=== PATIENT | female | born 1985 | race Caucasian/White ===

== ENCOUNTER 2017-04-16 08:52 | Outpatient (CLI) | payer MEDICAID ==
[~2017-04-16] VITALS: Ht 175.3 cm; Wt 63.5 kg
[~2017-04-16 08:52] MED LIST: ACHD5005 PO; AZIT-21 PO; Amlodipine Besylate PO; CETI5TAB6 PO; DCS100C PO; FERR325C PO; FRS325T PO; HYDR-3714 PO; IBP600T1 PO; LABE200T3 PO; NITR-65 PO; ONDA4TAB8 PO; POTA20TA15 PO; PREN1TAB71 PO; TRAM50TA2 PO
[2017-04-16] MEDS ORDERED: ADAL40KI SQ (09:04)
[2017-04-16 09:07] VITALS: BP 108/71
[2017-04-16 09:36] LABS: BASOPHILS # (AUTO) 0.1 10^3/uL (0.0-0.1); BASOPHILS % (AUTO) 1 % (0-10); EOSINOPHILS # (AUTO) 0.3 10^3/uL (0.0-0.3); EOSINOPHILS % (AUTO) 5 % (0-10); LYMPHOCYTES # (AUTO) 2.6 X 10^3 (1.0-4.0); LYMPHOCYTES % (AUTO) 39 % (12-44); MEAN CORPUSCULAR HEMOGLOBIN 30 PG (25-34); MEAN CORPUSCULAR HGB CONC 34 G/DL (32-36); MEAN CORPUSCULAR VOLUME 88 FL (80-99); MEAN PLATELET VOLUME 11.4 FL (7.4-10.4); MONOCYTES # (AUTO) 0.6 X 10^3 (0.0-1.0); MONOCYTES % (AUTO) 9 % (0-12); NEUTROPHILS # (AUTO) 3.1 X 10^3 (1.8-7.8); NEUTROPHILS % (AUTO) 47 % (42-75); PLATELET COUNT 244 10^3/uL (130-400); RED BLOOD COUNT 4.64 10^6/uL (4.35-5.85); RED CELL DISTRIBUTION WIDTH 12.5 % (10.0-14.5); WHITE BLOOD COUNT 6.7 10^3/uL (4.3-11.0)
== END 2017-04-16 15:32 | disposition home or self-care (01) ==
LOC: PREOP 08:52
PROVIDERS: ATTEND Obstetrics & Gynecology
DX: Z01.818 Encounter for other preprocedural examination (principal); N87.9 Dysplasia of cervix uteri, unspecified
CPT/HCPCS: 36415; 85025; 86850; 86900; 86901; 87081

== ENCOUNTER 2017-04-23 06:04 | Day surgery (SDC) | payer MEDICAID ==
[~2017-04-23] VITALS: Ht 175.3 cm; Wt 63.5 kg
[~2017-04-23 06:04] MED LIST changes: +ADAL40KI SQ
--- OUTSIDE RECORDS SUMMARY | 2017-04-23 06:07 | XMS REPORT | Encounter Summary ---
Author Author [facility] Organization [facility] Address Unknown Phone Unavailable Care Team Providers Care Children'S Minister Name Role Phone PCP Unavailable Reason for Visit * Reason Comments Prior Authorization Humira Encounter Details Date Type Department Care Team Description 04/06/2017 Telephone [facility] María Valencia DO Prior Authorization Physicians - Internal [address] [place] ([facility] [place] [address] [place] [address] OFFICE BLDG [phone] [address] [place] [address] Social History Tobacco Use Types Packs/Day Years Used Date Current Every Day Smoker Sex Assigned at Date Recorded Not on file as of this encounter Plan of Treatment Not on fileas of this encounter Visit Diagnoses Not on filein this encounter
--- OUTSIDE RECORDS SUMMARY | 2017-04-23 06:07 | XMS REPORT | Continuity of Care Document ---
Author Author [facility] Organization [facility] Address Unknown Phone Unavailable Care Team Providers Care Production Operations Inspector Name Role Phone [employer] Unavailable Unavailable Problems Medications Allergies, Adverse Reactions, Alerts Immunizations Results Vital Signs Encounters Location Location Details Encounter Type Encounter Number Reason For Visit Attending Provider ADM Date DC Date Status Source OUTPATIENT [id number] TAYA RODGERS 12/04/20162016 Active [facility] Naman DOWNEY 05/13/2017 Active [facility] Procedures Plan of Care Social History Assessment and Plan Family History Value Date Source Advance Directives Order Name Results Value Date Source
--- OUTSIDE RECORDS SUMMARY | 2017-04-23 06:07 | XMS REPORT | Encounter Summary ---
Author Author [facility] Organization [facility] Address Unknown Phone Unavailable Care Team Providers Care Motel Manager Name Role Phone PCP Unavailable Reason for Visit * Reason Comments Medication Management Encounter Details Date Type Department Care Team Description 01/23/2017 Pharmacist [facility] Roselia Dennis PHARMD Visit [address] [facility] [place] [address] Social History Tobacco Use Types Packs/Day Years Used Date Current Every Day Smoker Sex Assigned at Date Recorded Not on file as of this encounter Progress Notes * Roselia Dennis PHARMD - 01/23/2017 1:45 PM CDT Formatting of this note may be different from the original. Patient Reassessment: Tumor Necrosis Factor (TNF) Alpha Antagonists Humira (adalimumab) Appropriateness of Therapy Humira (adalimumab) is being continued for the appropriate indication of psoriatic arthritis. The regimen of 40 mg subcutaneously every 7 days is planned to continue indefinitely which is appropriate for Romy Yates. No renal or hepatic adjustments are required. At this time the there is no planned dose titration. Patient assessments: Subjective clinical assessment: on a scale of 1 to 10, the patient rates they are feeling 10 out of 10 while on treatment. Subjective Quality of Life Measurement: In the past 30 days, Romy Yates was able to complete all normal daily activities. Level of disease activity / changes while on therapy. Previously trialed agents:naproxen Allergy and/or intolerance medications: none Current agents:adalimumab, nabumetone, and diclofenac gel Additional considerations: none As the patient is achieving therapeutic benefit from the therapy the plan is to continue. Adverse Effects Romy Yates is not experiencing any significant adverse effects to this medication regimen. Adherence Refill history was reviewed with the patient. Romy Yates states they are adherent with refills and reports missing 0 doses over the past 4 weeks. The patient was reminded about the refill process and re-educated on the importance of adherence. Romy Yates is meeting their goal of adherence with their regimen. Medication Reconciliation A medication history and reconciliation were performed (including prescription medications, supplements, over the counter, and herbal products). The medication list was updated and the patients current medication list is included below. Home Medications Medication Sig adalimumab(+) (HUMIRA PEN) 40 mg/0.8 mL injection pen Inject 40 mg under the skin every 7 days. cyclobenzaprine (FLEXERIL) 10 mg tablet Take 1 Tab by mouth at bedtime as needed for Muscle Cramps. diclofenac(+) (VOLTAREN) 1 % topical gel Apply 2 grams four times a day to each thumb/wrist nabumetone (RELAFEN) 500 mg tablet TAKE 1 TABLET BY MOUTH 2 TIMES A DAY pantoprazole DR (PROTONIX) 40 mg tablet Take 1 Tab by mouth daily. Drug-drug and drug-food interactions between the patients specialty medication and their medication list were assessed and reviewed with the patient. Their regimen can be taken with or without food. No new significant drug-drug or drug-food interactions were identified. The patient was instructed to speak with their health care provider before starting any new drug, including prescription or over the counter, natural / herbal products, or vitamins. Allergies Allergies Allergen Reactions Codeine VOMITING Pcn [Penicillins] VOMITING status potential was reviewed with the patient. As the female is of child- bearing potential, she was instructed that is she plans to become and/ or in the event that she becomes she should contact her physician immediately. Ms. Yates currently has a copper IUD in place. Risk Evaluation and Mitigation Strategy (REMS) Assessment No REMS is required for this medication. The patient was encouraged to call with questions. Followup Plan Re-assessment has been completed. The patient will be reassessed in one year. Roselia Dennis PHARMD in this encounter Plan of Treatment Not on fileas of this encounter Visit Diagnoses Not on filein this encounter
--- OUTSIDE RECORDS SUMMARY | 2017-04-23 06:07 | XMS REPORT | Encounter Summary ---
Author Author [facility] Organization [facility] Address Unknown Phone Unavailable Care Team Providers Care Rail Walker Name Role Phone PCP Unavailable Reason for Visit * Reason Comments Medication Refill Encounter Details Date Type Department Care Team Description 03/09/2017 Refill [facility] Roselia De Souza MD Physicians - Internal [address] [facility] Medicine [place] [address] [place] [address] OFFICE BLDG [phone] [address] [place] [address] Social History Tobacco Use Types Packs/Day Years Used Date Current Every Day Smoker Sex Assigned at Date Recorded Not on file as of this encounter Plan of Treatment Not on fileas of this encounter Visit Diagnoses Not on filein this encounter
--- OUTSIDE RECORDS SUMMARY | 2017-04-23 06:07 | XMS REPORT | Clinical Summary ---
Author Author [facility] Organization [facility] Address Unknown Phone Unavailable Care Team Providers Care Throat Cutter Name Role Phone PCP Unavailable Source Comments Some departments are not documenting in the electronic medical record. If you do not see the information that you expected, contact Release of Information in the Health Information Management department at [phone] for further assistance in locating additional records.[facility] Allergies Active Allergy Reactions Severity Noted Date Comments Codeine VOMITING Low 07/20/2015 Penicillins VOMITING Low 07/20/2015 Current Medications Prescription Sig. Disp. Refills Start End Date Status Date cyclobenzaprine Take 1 Tab by mouth at 60 Tab 1 08/05/20 Active (FLEXERIL) 10 mg tablet bedtime as needed for [address] Take 1 Tab by mouth 90 Tab 3 12/05/19 Active (PROTONIX) 40 mg tablet daily. 17 nabumetone (RELAFEN) 500 TAKE 1 TABLET BY MOUTH 2 60 Tab 3 12/10/19 Active mg tablet TIMES A DAY 17 diclofenac(+) (VOLTAREN) Apply 2 grams four times 3 Tube 0 12/05/19 Active 1 % topical gel a day to each thumb/wrist 17 HUMIRA PEN INJECT 40 MG UNDER THE 12 Each 3 03/18/20 Active PSORIASIS-UVEITIS 40 SKIN EVERY 7 DAYS 17 mg/0.8 mL injection pen Active Problems Problem Noted Date Psoriasis 04/24/2016 Polyarthralgia 04/24/2016 Encounters Date Type Specialty Care Team Description 04/06/2017 Telephone Allergy,Immunology and María Valencia DO Prior Authorization Rheumatology (Humira) 03/09/2017 Refill Allergy,Immunology and Roselia De Souza MD Rheumatology 01/23/2017 Pharmacist Roselia Dennis, ENZOD Visit from Last 3 Months Immunizations Name Dates Previously Given Next Due Flu Vaccine 08/05/2016 Quadrivalent=>3 Yo (Preservative Free) Pneumococcal 04/24/2016 Vaccine(13-[facility]/immunocompromised adult) Family History Relation Name Status Comments Social History Tobacco Use Types Packs/Day Years Used Date Current Every Day Smoker Sex Assigned at Date Recorded Not on file Last Filed Vital Signs Vital Sign Reading Time Taken Blood Pressure 117/70 12/04/2016 10:48 AM CDT Pulse 85 12/04/2016 10:48 AM CDT Temperature 37 C (98.6 F) 12/04/2016 10:48 AM CDT Respiratory Rate 16 12/04/2016 10:48 AM CDT Oxygen Saturation - - Inhaled Oxygen - - Concentration Weight 64.6 kg (142 lb 6.4 oz) 12/04/2016 10:48 AM CDT Height 175.3 cm (5' 9.02") 12/04/2016 10:48 AM CDT Body Mass Index 21.02 12/04/2016 10:48 AM CDT Plan of Treatment Health Maintenance Due Date Last Done Comments PHYSICAL (COMPREHENSIVE) 02/10/1992 EXAM PERTUSSIS VACCINE 02/10/1996 TETANUS VACCINE 2002 CERVICAL CANCER SCREENING 2015 INFLUENZA VACCINE 04/17/2017 08/05/2016, 08/05/2016 Results Not on filefrom Last 3 Months
[2017-04-23] MEDS ORDERED: BUPIVACAINE 0.25% 30 ML (SENSORCAINE) VIAL ONE (06:29)
[2017-04-23] MEDS ORDERED: ROCURONIUM 50 MG/5 ML (ZEMURON) VIAL IV ONE ×2 (06:29→08:57)
[2017-04-23] MEDS ORDERED: ONDANSETRON 4 MG/2 ML (SDV) Z0FRAN ONE (06:29)
[2017-04-23] MEDS ORDERED: MIDAZOLAM 2 MG/2 ML (VERSED) VIAL ONE (06:29)
[2017-04-23] MEDS ORDERED: LIDOCAINE JELLY 2% (XYLOCAINE) 5 ML TUBE ONE (06:29)
[2017-04-23] MEDS ORDERED: LIDOCAINE PF 2% 5 ML (XYLOCAINE) VIAL ONE (06:29)
[2017-04-23] MEDS ORDERED: proPOfol 200 MG/20 ML (DIPRIVAN) VIAL IV ONE (06:29)
[2017-04-23] MEDS ORDERED: fentaNYL INJECTION 250 MCG/5 ML AMP ONE (06:29)
[2017-04-23 06:30] VITALS: BP 112/79
[2017-04-23] MEDS ORDERED: metroNIDAZOLE 500MG/100ML IVPB 100 ML ONE (06:30)
[2017-04-23] MEDS ORDERED: NS (IVPB) 50 ML ONE (06:30)
[2017-04-23] MEDS ORDERED: ceFAZolin 1,000 MG (ANCEF) VIAL ONE (06:30)
[2017-04-23] MEDS: LACTATED RINGERS 1,000 ML IV PRN ×3 (06:53→09:18)
--- NOTE | 2017-04-23 07:05 | Progress Note-Pre Operative ---
Pre-Operative Progress Note H&P Reviewed The H&P was reviewed, patient examined and no changes noted. Date Seen by Provider: Apr 23, 2017 Time Seen by Provider: 07:00 Date H&P Reviewed: Apr 23, 2017 Time H&P Reviewed: 07:00 Pre-Operative Diagnosis: Severe cervical dysplasia with + endocervical margins SULTANA RETANA DO Apr 23, 2017 7:05 am
[2017-04-23] MEDS ORDERED: ceFAZolin 1 GM/NS 50 ML IVPB IV ONE ×2 (07:15)
[2017-04-23] MEDS ORDERED: metroNIDAZOLE 500 MG/100 ML IVPB (PRE-MIX) IV ONE (07:15)
[2017-04-23] MEDS ORDERED: KETOROLAC 30 MG/ML VIAL ONE (08:53)
[2017-04-23] MEDS ORDERED: morphine INJ 10 MG/ML 1ML (SYR OR VIAL) ONE (08:53)
[2017-04-23] MEDS ORDERED: SEVOFLURANE (ULTANE) 15 ML INHAL SOLN ONE (08:57)
[2017-04-23] MEDS ORDERED: LACTATED RINGERS 1,000 ML IV ONE ×2 (08:57→09:10)
[2017-04-23] MEDS: MEPERIDINE (DEMEROL) INJ 50 MG/ML IVP PRN ×2 (09:18→09:22)
--- NOTE | 2017-04-23 09:19 | Discharge Inst-Women's Service ---
Discharge Inst-Women's Serv Depart Medication/Instructions New, Converted or Re-Newed RX: RX on Chart Consults/Follow Up Additional Follow Up: Yes Orders/Referrals Dr. Steele in 7-10 days and in 8 weeks Activity Activity: Activity as Tolerated Driving Instructions: No Driving for 1 Week NO SMOKING: NO SMOKING Nothing Inside Vagina: No Douching, No Benedict, No Tampons Diet Discharge Diet: No Restrictions Symptoms to Report to : Bleeding Excessive, Pain Increased, Fever Over 101 Degrees F, Vaginal Bleeding Increase, Questions/Concerns For Any Problems or Questions: Contact Your Physician Skin/Wound Care Infection Signs and Symptoms: Increased Redness, Foul Odor of Wound, Increased Drainage, Skin Itchy or Has a Rash, Increased Swelling, Temperature Above 101 F Operative Area Clean and Dry: Keep Incision Clean/Dry Stitches/Davida/Dermabond: Dermabond, Care of Stitches Bathing Instructions: SULTANA Alvarado DO Apr 23, 2017 9:19 am
[2017-04-23] MEDS ORDERED: HYDR-3816 PO (09:20)
[2017-04-23] MEDS ORDERED: DOCU100C37 PO (09:20)
[2017-04-23] MEDS ORDERED: IBUP-1773 PO (09:20)
[2017-04-23] MEDS ORDERED: SIME80TA16 PO (09:20)
[2017-04-23] MEDS: KETOROLAC 30 MG/ML VIAL IV PRN ×2 (09:28→15:41)
[2017-04-23] MEDS ORDERED: ONDANSETRON 4 MG/2 ML (SDV) Z0FRAN IVP PRN (09:30)
[2017-04-23] MEDS ORDERED: CHLORASEPTIC LOZENGE MM PRN (09:30)
[2017-04-23] MEDS ORDERED: ANTACID SUSP 30 ML UDC (MYLANTA) PO PRN (09:30)
[2017-04-23] MEDS ORDERED: DOCUSATE SODIUM 100 MG (COLACE) CAP PO PRN (09:30)
[2017-04-23] MEDS: morphine INJ 10 MG/ML 1ML (SYR OR VIAL) IVP PRN ×2 (09:30→09:46)
[2017-04-23] MEDS ORDERED: ONDANSETRON 4 MG/2 ML (SDV) Z0FRAN IV PRN (09:30)
[2017-04-23] MEDS ORDERED: ZOLPIDEM 5 MG (AMBIEN) TAB PO PRN (09:30)
[2017-04-23] MEDS ORDERED: SIMETHICONE 80 MG (MYLICON) CHEW PO PRN (09:30)
[2017-04-23] MEDS: LACTATED RINGERS 1,000 ML IV SCH ×2 (10:28→14:28)
[2017-04-23] MEDS: HYDROcodone/APAP 7.5 MG/325 MG (LORTAB, LORCET PLUS) TABLET PO PRN ×2 (11:34→17:55)
--- NOTE | 2017-04-23 11:58 | OPERATIVE REPORT ---
DATE OF SERVICE: PREOPERATIVE DIAGNOSIS: A 32-Year-old female with severe cervical dysplasia with positive endocervical margin on cone biopsy. POSTOPERATIVE DIAGNOSIS: A 32-Year-old female with severe cervical dysplasia with positive endocervical margin on cone biopsy. PROCEDURE PERFORMED: Robotic assisted total laparoscopic hysterectomy with bilateral salpingectomy. SURGEON: Dr. Arthur Retana. SHOVEL HANDLE ASSEMBLER: REMY Saldaña ANESTHESIA: General endotracheal. ESTIMATED BLOOD LOSS: 20 mL. URINE OUTPUT: 40 mL, clear at the end of the procedure. FLUIDS: 2000 mL Lactated Ringers solution. FINDINGS: Grossly normal appearing uterus with grossly normal appearing bilateral fallopian tubes and ovaries. SPECIMENS SENT: Uterus and fallopian tubes. INDICATION FOR PROCEDURE: This 32-year-old female is a patient that had been established in my office. We were following her for history of dysplasia. 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 Cone biopsy was taken in the office which revealed positive endocervical margins. I discussed with the patient proceeding with another cone biopsy versus proceeding with hysterectomy, risks of both were discussed, as well as need for possible repeat conizations, colposcopies and further workup down the line. After everything was discussed with the patient, she and her agreed that hysterectomy as a more definitive measure would be a better option for her. Risks again were reviewed with the patient in detail including risk of bleeding, infection, damage to any surrounding structures including but not limited to bowel, bladder, ureter, kidneys and subsequent procedures that may be involved if any of these things should occur. Risks from anesthesia, blood transfusion and even were all reviewed with the patient as well. After all of her questions were answered, consent was obtained in the preoperative area and the patient was taken to the operating room. DESCRIPTION OF PROCEDURE: Once in the operating room, general anesthesia was found to be adequate. She was placed in dorsal lithotomy position and prepped and draped in a normal sterile fashion. Ambriz catheter was placed using a sterile technique. A weighted speculum was inserted into the patient's vagina. Right angled retractor was used to visualize the cervix. An 0 Vicryl suture was placed on the anterior lip of the cervix and used as my retraction point on the cervix. I then proceeded with sounding the uterine cavity which was found to be 8 cm. I then selected 8 cm Nisa uterine manipulator tip and a 3.5 colpotomy ring and placed the manipulator into the uterus deploying the balloon and deploying the colpotomy ring around the vaginal fornix. Once this was in place, excellent manipulation is noted on bimanual examination. I then removed all of the other instruments from the patient's vagina, performed a change of clothes and took my attention to the abdomen where infraumbilically, I infiltrated this area using 0.25% Marcaine. I made an 8 mm incision and directed the Veress needle through this incision until intraperitoneal placement was confirmed using the saline drop test. I then proceeded with insufflation using CO2 gas to a maximum pressure of 15 mmHg after an opening pressure of 3 mmHg is noted. I then removed the Veress needle and introduced an 8 mm blunt da Serina camera trocar through this incision. Once again, intraperitoneal placement was able to be confirmed using the da Serina laparoscope. I then had the patient placed in steep Trendelenburg after I briefly scanned the abdominal anatomy and unable to see any evidence of damage upon my entry. Once the patient was in steep Trendelenburg, I am able to visualize all the anatomy necessary to proceed with the procedure. I placed 2 8 mm incisions approximately 8 cm lateral to my infraumbilical trocar. These are used for my separate robotic arms. Once these trocars are in place, I bring in the Easy Square Feeti robot and docked in the appropriate fashion. I placed monopolar taina in the right hand and the DaVinci vessel sealer in the left hand. I then took my place at the operative console after the BigTwistinci robot is docked and performed the following dissection bilaterally. I 1st grasped the uteroovarian ligament, bipolar cauterized and transected using the vessel sealer. I then created a window in the mesosalpinx using the monopolar taina and then took this distally amputating the fallopian tube from the mesosalpinx using the DaVinci vessel sealer. I then grasped the round ligament, bipolar cauterized this. I transected it using the vessel sealer. I then grasped the entire broad ligament, bipolar cauterized and transected using the vessel sealer down to the level of the lower uterine segment at which point I separate the anterior and posterior leaflets of the lower uterine segment. The anterior leaflet is taken around to the anterior vaginal fornix. The posterior leaflet dissection is taken around to the posterior vaginal fornix. This allows me to visualize and skeletonize the uterine vessels laterally. They are bipolar cauterized and transected using the vessel sealer. I then performed a colpotomy at 12 o'clock using monopolar taina and took this circumferentially amputating the vaginal fornix away from the cervix and uterus and fallopian tubes. The uterus was then removed through the vagina. I then proceeded with closing the lateral vaginal apices of the vaginal cuff using 2-0 Vicryl suture in a [id number] fashion. I colposuspend them to the uterosacral ligaments. I then closed the remainder of the vaginal cuff using 2-0 V-Loc in a running fashion after which there was no active bleeding noted from any of my dissection planes. I undocked the Easy Square Feeti robot and proceeded with the remainder of the case laparoscopically. I copiously irrigated the pelvis using normal saline. There was no active bleeding noted from any of my dissection planes. I then placed FloSeal hemostatic agent over all my planes of dissection and after the patient was taken out of steep Trendelenburg I removed the lateral trocars under direct visualization with the laparoscope. There was no active bleeding noted from these. The infraumbilical trocar was left in place and I introduced 10 mL of 0.25% Marcaine to the peritoneal cavity for postoperative pain management. I then released insufflation from this site as well and removed this trocar. The skin was then closed using 4-0 Monocryl in interrupted subcuticular stitches. Dermabond was applied to the incision and band-aids were placed over this. Ambriz catheter was left in place. All other instruments were removed from the patient. The patient tolerated the procedure well and was taken to the recovery area in stable condition. Lap and sponge counts were correct at the end of the procedure. Instrument count is correct as well. One gram of Ancef and 500 mg Flagyl were given preoperatively for infection prophylaxis. Job ID: [id number] DocumentID: [id number] Dictated Date: 04/23/2017 10:45:38 Rice Cleaning Machine Tender Date: 04/23/2017 11:57:26 Dictated By: ARTHUR RETANA DO
[2017-04-23 13:40] VITALS: BP_SYST 102; BP_SYST 99; BP_DIAS 49; BP_DIAS 57
[2017-04-24] MEDS ORDERED: IBUPROFEN 600 MG (MOTRIN) TAB PO PRN (02:00)
== END 2017-04-23 17:55 | disposition home or self-care (01) ==
LOC: SDC 06:04 → WS 10:00 → SDC 17:55
PROVIDERS: ATTEND Obstetrics & Gynecology
DX: N72 Inflammatory disease of cervix uteri (principal); F17.210 Nicotine dependence, cigarettes, uncomplicated
CPT/HCPCS: 84703; 94664

== ENCOUNTER 2017-05-02 18:53 | Emergency (ER) | payer MEDICAID ==
[~2017-05-02] VITALS: Ht 175.3 cm; Wt 65.8 kg
[~2017-05-02 18:53] MED LIST changes: +DOCU100C37 PO; +HYDR-3816 PO; +IBUP-1773 PO; +SIME80TA16 PO
--- OUTSIDE RECORDS SUMMARY | 2017-05-02 19:00 | XMS REPORT | Clinical Summary ---
Author Author [facility] Organization [facility] Address Unknown Phone Unavailable Care Team Providers Care Senior Control Systems Engineer Name Role Phone PCP Unavailable Source Comments Some departments are not documenting in the electronic medical record. If you do not see the information that you expected, contact Release of Information in the Health Information Management department at [phone] for further assistance in locating additional records.[facility] Allergies Active Allergy Reactions Severity Noted [...] Allergy,Immunology and Roselia De Souza MD Rheumatology from Last 3 Months Immunizations Name Dates [...] 2002 CERVICAL CANCER SCREENING 2015 INFLUENZA VACCINE 05/17/2017 08/05/2016, 08/05/2016 Results Not on filefrom Last 3 Months
--- OUTSIDE RECORDS SUMMARY | 2017-05-02 19:00 | XMS REPORT | Encounter Summary ---
Author Author [facility] Organization [facility] Address Unknown Phone Unavailable Care Team Providers Care Can Technician Name Role Phone PCP Unavailable Reason for Visit * Reason Comments Prior Authorization Humira Encounter Details Date Type Department Care Team Description 04/06/2017 Telephone [facility] María Valencia DO Prior Authorization Physicians - Internal [address] [place] ([facility]) Medicine [place] [address] [place] [address] OFFICE BLDG [phone] [address] [place] [address] Social History Tobacco Use Types Packs/Day Years Used Date Current Every Day Smoker Sex Assigned at Date Recorded Not on file as of this encounter Plan of Treatment Not on fileas of this encounter Visit Diagnoses Not on filein this encounter
--- OUTSIDE RECORDS SUMMARY | 2017-05-02 19:00 | XMS REPORT | Encounter Summary ---
Author Author [facility] Organization [facility] Address Unknown Phone Unavailable Care Team Providers Care Repair Mechanic Name Role Phone PCP Unavailable Reason for Visit * Reason Comments Medication Refill Encounter Details Date Type Department Care Team Description 03/09/2017 Refill [facility] Roselia De Souza MD Physicians - Internal [address] [facility] Medicine [address] [place] [address] OFFICE BLDG [phone] [address] [place] [address] Social History Tobacco Use Types Packs/Day Years Used Date Current Every Day Smoker Sex Assigned at Date Recorded Not on file as of this encounter Plan of Treatment Not on fileas of this encounter Visit Diagnoses Not on filein this encounter
--- OUTSIDE RECORDS SUMMARY | 2017-05-02 19:00 | XMS REPORT | Continuity of Care Document ---
Author Author [facility] Organization [facility] Address Unknown Phone Unavailable Care Team Providers Care Strings Teacher Name Role Phone [employer] Unavailable Unavailable Problems Medications Allergies, Adverse Reactions, Alerts Immunizations Results Vital Signs Encounters Location Location Details Encounter Type Encounter Number Reason For Visit Attending Provider ADM Date DC Date Status Source OUTPATIENT [id number] TAYA RODGERS 12/04/20162016 Active [facility] Naman DOWNEY 05/13/2017 Active [facility] Procedures Plan of Care Social History Assessment and Plan Family History Value Date Source Advance Directives Order Name Results Value Date Source
--- NOTE | 2017-05-02 19:34 | ED Fever ---
History of Present Illness General Chief Complaint: General Problems/Pain Stated Complaint: BACK PAIN/CHILLS AFTER HYSTERECTOMY LAST THURSDAY Nursing Triage Note: PT TO ED 5 W/ C/O LOWER BACK PAIN ET CHILLS ONSET X2 DAYS. PT REPORTS SHE RECENTLY HAD A VAGINAL HYSTERECTOMY X9 DAYS AGO BY DR RETANA. PT STATES SHE DID NOT CONTACT DR RETANA W/ C/O. UNKNOWN IF SHE HAD A FEVER PT STATES SHE NEVER CHECKED IT AT HOME Sepsis Screen: No Definite Risk Source: patient, spouse Exam Limitations: no limitations History of Present Illness Time seen by provider: 19:28 Initial Comments Patient complains of one half days of worsening lower back pain and pelvic pain as well as subjective fevers however every time she measures it is not true fever. She's had no nausea or vomiting however a week ago Dr. RETANA took her for a hysterectomy for precancerous cells. She has had worsening drainage from her left lower abdominal quadrant wound site that she has not seen her surgeon for yet. She has psoriatic arthritis for which she uses Humira however she says she's not been on the medication for about 3 or 4 weeks. She has been using the ibuprofen for her pain as prescribed. No sick contacts or recent travel. She has a dry chronic cough from her smoking about a pack per day. Allergies and Home Medications Allergies Coded Allergies: Penicillins (Verified Allergy, Intermediate, GI UPSET, 04/16/17) codeine (Verified Allergy, Unknown, 05/02/17) Home Medications Adalimumab 40 Mg/0.8 Ml Syringekit, 40 MG SQ WEEK, (Reported) Docusate Sodium 100 Mg Capsule, 100 MG PO BID PRN for CONSTIPATION-1ST LINE, #40 Prescribed by: SULTANA RETANA on 04/23/17 0920 Hydrocodone/Acetaminophen 1 Each Tablet, 1-2 EA PO Q6H PRN for Pain-See Instructions, #50 Prescribed by: SULTANA RETANA on 04/23/17 0920 Ibuprofen 600 Mg Tablet, 600 MG PO Q6H PRN for PAIN-MODERATE, #80 Prescribed by: SULTANA RETANA on 04/23/17 0920 Simethicone 80 Mg Tab.chew, 40 MG PO TID PRN for INDIGESTION 2ND LINE, #40 Prescribed by: SULTANA RETANA on 04/23/17 0920 Constitutional: No chills, No diaphoresis EENTM: No ear pain, No eye pain Respiratory: see HPI, cough, No phlegm, short of breath Cardiovascular: No chest pain, No palpitations Gastrointestinal: abdominal pain, No constipation, No diarrhea, No nausea, No vomiting Genitourinary: No discharge, No dysuria : No (hysterectomy last week) Musculoskeletal: back pain (bilateral lower back pain) Skin: No pruritus, No rash, other (left lower quadrant draining purulence wound ) Psychiatric/Neurological: Denies Headache, Denies Numbness, Denies Paresthesia Past Vacfesn-Ykvfku-Oifwll Hx Patient Social History Alcohol Use: Denies Use Recreational Drug Use: No Smoking Status: Current Everyday Smoker Type Used: Cigarettes Recent Foreign Travel: No Contact w/Someone Who Travel: No Recent Infectious Disease Expo: No Recent Hopitalizations: Yes Physical Abuse: No Sexual Abuse: No Mistreated: No Fear: No Immunizations Up To Date Tetanus Booster (TDap): Unknown PED Vaccines UTD: No Date of Influenza Vaccine: May 26, 2016 Seasonal Allergies Seasonal Allergies: No Surgeries History of Surgeries: Yes (BMT'S, RIGHT BREAST LUMPECTOMY ( BENIGN) ) Surgeries: Adenoidectomy, Breast, Ear Surgery, Hysterectomy, Tonsillectomy Respiratory History of Respiratory Disorde: No Cardiovascular History of Cardiac Disorders: Yes (HYPERTENSION AFTER DELIVERY ) Cardiac Disorders: Hypertension Neurological History of Neurological Disord: No Reproductive System Hx Reproductive Disorders: Yes (SEVERE CERVICAL DYSPLASIA) Sexually Transmitted Disease: Yes HIV/AIDS: No Female Reproductive Disorders: Ovarian Cyst Gastrointestinal History of Gastrointestinal Di: No Musculoskeletal History of Musculoskeletal Dis: Yes (PSORIATIC ARTHRITIS) Endocrine History of Endocrine Disorders: No HEENT Loss of Vision: Bilateral Hearing Impairment: Denies Cancer History of Cancer: No Psychosocial History of Psychiatric Problem: No Suicide Risk Score: 0 Integumentary History of Skin or Integumenta: Yes Skin/Integumentary Disorders: Psoriasis Blood Transfusions History of Blood Disorders: No Adverse Reaction to a Blood Tr: No Family Medical History Family Medial History: Alcoholism Arthritis Asthma Cardiovascular disease Diabetes mellitus Hypertension Kidney disease Prostate cancer Psychosocial problem Respiratory disorder Visual disorder No Family History of: AIDS Abdominal aortic aneurysm Rialto's disease Alzheimer's disease Aphasia Cancer of mouth Cataracts Colon cancer Completed stroke Congenital disease Congenital heart disease Coronary thrombosis Cystic fibrosis Deafness or hearing loss Dementia Drug abuse Dysphasia Fibrocystic disease of breast Gastroenteritis Glaucoma Headache disorder Hypercholesterolemia Infertility Myocardial infarction Neoplasm Not obtainable due to adoption Osteoporosis Parkinson's disease Seizure disorder Severe allergy Thyroid disease Tuberculosis Physical Exam Vital Signs Vital Sign - Last 12Hours 05/02/17 19:12 Temp 98.3 Pulse 115 Resp 20 B/P (MAP) 124/81 Pulse Ox 95 O2 Delivery Room Air Capillary Refill : Less Than 3 Seconds General Appearance: WD/WN, no apparent distress Eyes: Bilateral Eye Normal Inspection, Bilateral Eye PERRL, Bilateral Eye EOMI HEENT: PERRL/EOMI, pharynx normal Neck: non-tender, supple, normal inspection Respiratory: chest non-tender, lungs clear, normal breath sounds Cardiovascular: normal peripheral pulses, regular rate, rhythm, no edema Gastrointestinal: normal bowel sounds, soft, tenderness (bilateral lower quadrant) Extremities: normal inspection, normal capillary refill Neurologic/Psychiatric: alert, oriented x 3 Skin: normal color, other (healed well approximated clean dry and intact laparoscopic wounds on her abdomen except for the left lower quadrant wound has erythema tenderness and spontaneously draining purulence.) Focused Exam Evaluation Lactate Level Laboratory Tests 05/02/17 19:37: Lactic Acid Level 0.77 Lactic Acid Level Laboratory Tests Test 05/02/17 19:37 Lactic Acid Level 0.77 MMOL/L (0.50-2.00) Progress/Results/Core Measures Results/Orders Lab Results Laboratory Tests Test 05/02/17 19:18 05/02/17 19:37 Range/Units Urine Color YELLOW Urine Clarity SLIGHTLY CLOUDY Urine pH 6 5-9 Urine Specific [place] 1.025 H 1.016-1.022 Urine Protein 1+ H NEGATIVE Urine Glucose (UA) NEGATIVE NEGATIVE Urine Ketones NEGATIVE NEGATIVE Urine Nitrite NEGATIVE NEGATIVE Urine Bilirubin NEGATIVE NEGATIVE Urine Urobilinogen 1 NORMAL MG/DL Urine Leukocyte Esterase 1+ H NEGATIVE Urine RBC (Auto) 2+ H NEGATIVE Urine RBC RARE /HPF Urine WBC 0-2 /HPF Urine Squamous Epithelial Cells 10-25 H /HPF Urine Crystals PRESENT H /LPF Urine Calcium Oxalate Crystals FEW H /LPF Urine Bacteria TRACE /HPF Urine Casts NONE /LPF Urine Mucus SMALL H /LPF Urine Culture Indicated NO White Blood Count 11.0 4.3-11.0 10^3/uL Red Blood Count 4.45 4.35-5.85 10^6/uL Hemoglobin 13.1 11.5-16.0 G/DL Hematocrit 39 35-52 % Mean Corpuscular Volume 88 80-99 FL Mean Corpuscular Hemoglobin 29 25-34 PG Mean Corpuscular Hemoglobin Concent 34 32-36 G/DL Red Cell Distribution Width 12.1 10.0-14.5 % Platelet Count 292 130-400 10^3/uL Mean Platelet Volume 10.9 H 7.4-10.4 FL Neutrophils (%) (Auto) 63 42-75 % Lymphocytes (%) (Auto) 20 12-44 % Monocytes (%) (Auto) 11 0-12 % Eosinophils (%) (Auto) 6 0-10 % Basophils (%) (Auto) 1 0-10 % Neutrophils # (Auto) 6.9 1.8-7.8 X 10^3 Lymphocytes # (Auto) 2.2 1.0-4.0 X 10^3 Monocytes # (Auto) 1.2 H 0.0-1.0 X 10^3 Eosinophils # (Auto) 0.7 H 0.0-0.3 10^3/uL Basophils # (Auto) 0.1 0.0-0.1 10^3/uL Sodium Level 139 135-145 MMOL/L Potassium Level 3.4 L 3.6-5.0 MMOL/L Chloride Level 105 98-107 MMOL/L Carbon Dioxide Level 22 21-32 MMOL/L Anion Gap 12 5-14 MMOL/L Blood Urea Nitrogen 10 7-18 MG/DL Creatinine 0.69 0.60-1.30 MG/DL Estimat Glomerular Filtration Rate > 60 BUN/Creatinine Ratio 14 Glucose Level 104 70-105 MG/DL Lactic Acid Level 0.77 0.50-2.00 MMOL/L Calcium Level 9.6 8.5-10.1 MG/DL Total Bilirubin 0.3 0.1-1.0 MG/DL Aspartate Amino Transf (AST/SGOT) 9 5-34 U/L Alanine Aminotransferase (ALT/SGPT) 6 0-55 U/L Alkaline Phosphatase 60 40-136 U/L Total Protein 7.0 6.4-8.2 GM/DL Albumin 4.0 3.2-4.5 GM/DL My Orders Orders - TATO COPELAND Ct Abdomen/Pelvis Wo (05/02/17 19:25) Cbc With Automated Diff (05/02/17 19:25) Comprehensive Metabolic Panel (05/02/17 19:25) Ua Culture If Indicated (05/02/17 19:25) Lactic Acid Analyzer (05/02/17 19:25) Potassium Chloride (Tablet) (K Dur Table (05/02/17 20:15) Vital Signs/I&O Vital Sign - Last 12Hours 05/02/17 19:12 Temp 98.3 Pulse 115 Resp 20 B/P (MAP) 124/81 Pulse Ox 95 O2 Delivery Room Air Blood Pressure Mean: 95 Progress Note : Time: 19:33 Progress Note With her history of Humira use and her wound seems that is draining purulence we'll go ahead and check urine and blood lactate and get a CT of her abdomen to make sure that this wound does not tract further into her abdomen. Diagnostic Imaging Diagonstic Imaging: CT Plain Films/CT/US/NM/MRI: abdomen, pelvis (c/o) Comments NAME: MAUGARYTARAH Reji [facility] REC#: [id number] PHYSICIAN: TATO COPELAND MD CC: CHANDNI DEGROOT MD; TATO COPELAND Page 2 of 2 RADIOLOGY REPORT VIA [facility], [facility]. [place], [place] CC: CHANDNI DEGROOT MD; TATO COPELAND Page 1 of 2 RADIOLOGY REPORT NAME: TARAH LEÓN [facility] REC#: [id number] PT STATUS: REG ER : 1985 PHYSICIAN: TATO COPELAND MD ADMIT DATE: 05/02/17/ER Signed Date of Exam: 05/02/17 CT ABDOMEN/PELVIS WO PROCEDURE: CT abdomen and pelvis without contrast. TECHNIQUE: Multiple contiguous axial images were obtained through the abdomen and pelvis without the use of intravenous contrast. INDICATION: 32-year-old female presents with chills, right-sided back pain with pain radiating anteriorly. COMPARISON: None. FINDINGS: Lung bases are clear. Cardiac contour is normal. Liver shows uniform attenuation. Gallbladder is nondistended. Spleen and GE junction are normal. Stomach and duodenal sweep are unremarkable. Pancreas shows sharp margins. Adrenals are normal. Kidneys appear normal in size, position and contour. There are no discrete renal or ureteral calculi. Both ureters are seen intermittently through their course with no evidence of hydroureter or ureteral calculus. Bladder, however, shows diffuse wall thickening with stranding. There is a previous hysterectomy. There is diffuse stranding within the pelvis. There is a right adnexal complex cystic mass associated with the right ovary. This measures 8 cm x 4.5 cm x 5.2 cm. Some mild mesenteric stranding is seen nonspecific. Nonopacified loops of small bowel are grossly normal proximally. The distal small bowel does show a segment of bowel showing some mucosal thickening. The appendix is not clearly delineated but is low in the pelvis. Large bowel is mostly decompressed but contains scattered pockets of gas and fecal material. The descending colon is mostly decompressed. Apart from the trace free pelvic fluid, no other areas of fluid collections are seen. There is no evidence of adenopathy or free air. Bone windows show no overall gross abnormalities. IMPRESSION: 1. Previous hysterectomy. 2. Complex right adnexal cystic mass most likely an ovarian mass with measurements given above. Differential includes cystadenoma versus cystadenocarcinoma. Correlation with an MRI is recommended. 3. Distal small bowel mucosal thickening may be sympathetic to the inflammatory change within the pelvis. 4. Nondistended bladder. The bladder wall is minimally thickened and an element of cystitis is not entirely excluded. Correlate clinically. Additional nonemergent findings as described above. Pelvic inflammatory disease is also within the differential. Dictated by: Dictated on workstation # [id number] Dict: 05/02/171952 Trans: 05/02/172013 Interpreted by: CHANDNI DEGROOT MD Electronically signed by: CHANDNI DEGROOT MD 05/02/172013 Reviewed: Reviewed by Me Consults Consults : Consulting Physician: SULTANA RETANA DO Consults Notes Discussed imaging results with Dr. RETANA who did the surgery proximal leg week ago and he says there is no 4 x 5 cm adnexal mass and the tubes are gone. He agrees is more likely this is postsurgical changes and possibly fluid collection or abscess. The patient does not have a white count nor does she need to be in the hospital so he will be happy to see her in the clinic Thursday or Thursday. He recommends broad-spectrum metabolic such as Augmentin and Flagyl. Departure Impression Impression: Primary Impression: Wound infection after surgery Qualified Codes: T81.4XXA - Infection following a procedure, initial encounter Additional Impression: Abdominal pain Qualified Codes: R10.30 - Lower abdominal pain, unspecified Disposition: 01 HOME, SELF-CARE Condition: Stable Departure-Patient Inst. Decision time for Depature: 22:27 Referrals: RAFAELA DE LA FUENTE MD (PCP/Family) Primary Care Physician Patient Instructions: Wound Infection Add. Discharge Instructions: Clean the site with soap and water and keep a light dressing on there and change it as necessary. Take the antibiotics as prescribed. Drink via fluids use Tylenol or Motrin for pain. Plan on following up with Dr. RETANA Thursday morning by calling his clinic at its [phone]. If you have worsening symptoms such as intractable nausea, high fevers or worsening pain then you should return to the ER for further evaluation. All discharge instructions reviewed with patient and/or family. Voiced understanding. Scripts L.acidoph & Paracasei,B.lactis (Probiotic) 1 Each Capsule 1 EACH PO BID for 10 Days, #20 CAP 0 Refills Prov: TATO COPELAND 05/02/17 Ondansetron (Zofran Odt) 4 Mg Tab.rapdis 4 MG PO Q4H Y for NAUSEA/VOMITING-1ST LINE, #20 TAB 0 Refills Prov: TATO COPELAND 05/02/17 Metronidazole (Flagyl) 500 Mg Tablet 500 MG PO Q6H for 10 Days, #40 TAB 0 Refills Prov: TATO COPELAND 05/02/17 Amoxicillin/Potassium Clav (Augmentin 875-125 Tablet) 1 Each Tablet 1 EACH PO BID for 10 Days, #20 TAB 0 Refills Prov: TATO COPELAND 05/02/17 Copy Copies To 1: SULTANA RETANA DO Copies To 2: RAFAELA DE LA FUENTE MD, TITUS J May 02, 2017 19:34
[2017-05-02 19:44] LABS: BILIRUBIN,URINE NEGATIVE (NEGATIVE); KETONES,URINE NEGATIVE (NEGATIVE); LEUKOCYTE ESTERASE ,URINE 1+ (NEGATIVE); NITRITE,URINE NEGATIVE (NEGATIVE); PH,URINE 6 (5-9); PROTEIN,URINE 1+ (NEGATIVE); UROBILINOGEN,URINE 1 MG/DL (NORMAL)
[2017-05-02 19:48] LABS: BASOPHILS # (AUTO) 0.1 10^3/uL (0.0-0.1); BASOPHILS % (AUTO) 1 % (0-10); EOSINOPHILS # (AUTO) 0.7 10^3/uL (0.0-0.3); EOSINOPHILS % (AUTO) 6 % (0-10); LYMPHOCYTES # (AUTO) 2.2 X 10^3 (1.0-4.0); LYMPHOCYTES % (AUTO) 20 % (12-44); MEAN CORPUSCULAR HEMOGLOBIN 29 PG (25-34); MEAN CORPUSCULAR HGB CONC 34 G/DL (32-36); MEAN CORPUSCULAR VOLUME 88 FL (80-99); MEAN PLATELET VOLUME 10.9 FL (7.4-10.4); MONOCYTES # (AUTO) 1.2 X 10^3 (0.0-1.0); MONOCYTES % (AUTO) 11 % (0-12); NEUTROPHILS # (AUTO) 6.9 X 10^3 (1.8-7.8); NEUTROPHILS % (AUTO) 63 % (42-75); PLATELET COUNT 292 10^3/uL (130-400); RED BLOOD COUNT 4.45 10^6/uL (4.35-5.85); RED CELL DISTRIBUTION WIDTH 12.1 % (10.0-14.5)
[2017-05-02 19:56] LABS: CALCIUM OXALATE CRYSTALS,UR FEW /LPF; WBC,URINE 0-2 /HPF
[2017-05-02 20:05] LABS: ALANINE AMINOTRANSFERASE 6 U/L (0-55); ANION GAP 12 MMOL/L (5-14); ASPARTATE AMINO TRANSFERASE 9 U/L (5-34); BILIRUBIN,TOTAL 0.3 MG/DL (0.1-1.0); BLOOD UREA NITROGEN 10 MG/DL (7-18); BUN/CREATININE RATIO 14; CALCIUM 9.6 MG/DL (8.5-10.1); CARBON DIOXIDE 22 MMOL/L (21-32); CHLORIDE 105 MMOL/L (98-107); CREATININE SERUM 0.69 MG/DL (0.60-1.30); GFR ESTIMATED > 60; GLUCOSE 104 MG/DL (70-105); POTASSIUM 3.4 MMOL/L (3.6-5.0); SODIUM 139 MMOL/L (135-145)
--- NOTE | 2017-05-02 20:11 | Diagnostic Imaging Report ---
PROCEDURE: CT abdomen and pelvis without contrast. TECHNIQUE: Multiple contiguous axial images were obtained through the abdomen and pelvis without the use of intravenous contrast. INDICATION: 32-year-old female presents with chills, right-sided back pain with pain radiating anteriorly. COMPARISON: None. FINDINGS: Lung bases are clear. Cardiac contour is normal. Liver shows uniform attenuation. Gallbladder is nondistended. Spleen and GE junction are normal. Stomach and duodenal sweep are unremarkable. Pancreas shows sharp margins. Adrenals are normal. Kidneys appear normal in size, position and contour. There are no discrete renal or ureteral calculi. Both ureters are seen intermittently through their course with no evidence of hydroureter or ureteral calculus. Bladder, however, shows diffuse wall thickening with stranding. There is a previous hysterectomy. There is diffuse stranding within the pelvis. There is a right adnexal complex cystic mass associated with the right ovary. This measures 8 cm x 4.5 cm x 5.2 cm. Some mild mesenteric stranding is seen nonspecific. Nonopacified loops of small bowel are grossly normal proximally. The distal small bowel does show a segment of bowel showing some mucosal thickening. The appendix is not clearly delineated but is low in the pelvis. Large bowel is mostly decompressed but contains scattered pockets of gas and fecal material. The descending colon is mostly decompressed. Apart from the trace free pelvic fluid, no other areas of fluid collections are seen. There is no evidence of adenopathy or free air. Bone windows show no overall gross abnormalities. IMPRESSION: 1. Previous hysterectomy. 2. Complex right adnexal cystic mass most likely an ovarian mass with measurements given above. Differential includes cystadenoma versus cystadenocarcinoma. Correlation with an MRI is recommended. 3. Distal small bowel mucosal thickening may be sympathetic to the inflammatory change within the pelvis. 4. Nondistended bladder. The bladder wall is minimally thickened and an element of cystitis is not entirely excluded. Correlate clinically. Additional nonemergent findings as described above. Pelvic inflammatory disease is also within the differential. Dictated by: Dictated on workstation # [id number]
[2017-05-02] MEDS ORDERED: KCL 20 MEQ TAB (K-DUR) PO ONE ×2 (20:15→22:36)
[2017-05-02] MEDS ORDERED: METR500T PO (22:26)
[2017-05-02] MEDS ORDERED: L.AC1CAP6 PO (22:26)
[2017-05-02] MEDS ORDERED: AMOX-358 PO (22:26)
[2017-05-02] MEDS ORDERED: ONDA4TAB8 PO (22:26)
[2017-05-02] MEDS ORDERED: RX-AMOX/CLAV. (AUGMENTIN) 500MG TAB PPK#2 PO STA (22:27)
[2017-05-02] MEDS ORDERED: RX-ONDANSETRON 4 MG ODT (ZOFRAN) PPK #4 PO STA (22:27)
[2017-05-02] MEDS ORDERED: metroNIDAZOLE 500 MG (FLAGYL) TAB PO ONE (22:30)
[2017-05-02 22:50] VITALS: BP 111/75
== END 2017-05-02 22:50 | disposition home or self-care (01) ==
LOC: EDUNIT# 18:53 → ER 18:55
DX: T81.4XXA Infection following a procedure, initial encounter (principal); R10.31 Right lower quadrant pain; R10.32 Left lower quadrant pain; I10 Essential (primary) hypertension; F17.210 Nicotine dependence, cigarettes, uncomplicated; Z87.448 Personal history of other diseases of urinary system; Z82.49 Family history of ischemic heart disease and other diseases of the circulatory system; Z90.89 Acquired absence of other organs; Z90.710 Acquired absence of both cervix and uterus
CPT/HCPCS: 36415; 74176; 80053; 81000; 83605; 85025

== ENCOUNTER → 2021-08-16 | Outpatient (CLI) | payer MEDICAID ==
[~2021-08-16] MED LIST changes: +AMOX-358 PO; +HYDR-34 PO; -HYDR-3816 PO; +L.AC1CAP6 PO; +METR500T PO
--- NOTE | 2021-08-16 11:29 | Diagnostic Imaging Report ---
EXAMINATION: US Abdomen complete. TECHNIQUE: Multiple real-time grayscale images were obtained over the right upper quadrant in various projections. HISTORY: Early satiety, partial hysterectomy. COMPARISON: None available. FINDINGS: The liver is normal in size. The liver is normal in echogenicity. No focal lesions are seen. The portal vein is patent with hepatopedal flow. Gallbladder is normal without wall thickening or pericholecystic fluid. Sonographic Leone sign is negative. Common duct measures 4 mm. There is no biliary ductal dilation. The visualized portions of the pancreas are normal. The right kidney is normal without hydronephrosis. The left kidney is normal without hydronephrosis. The aorta and inferior vena cava are normal. The spleen is normal. No ascites is seen. IMPRESSION: 1. Unremarkable abdominal ultrasound. Dictated by: Dictated on workstation # [id number]
--- NOTE | 2021-08-16 11:32 | Diagnostic Imaging Report ---
PROCEDURE: US Non-ob pelvis comp/trans. TECHNIQUE: Multiple realtime grayscale images were obtained of the pelvis in various projections endovaginally. Transabdominal imaging was also performed. INDICATION: Pelvic pain. There are no prior studies available for comparison. By history, the patient did undergo a partial hysterectomy in 2015. On this exam the uterus is not identified. Both ovaries were noted. There is good blood flow to each ovary and there is no sign of torsion. There do appear to be a few subcentimeter follicles/cysts associated with each ovary. There is no solid pelvic mass or free fluid collection evident. IMPRESSION: 1. There is no evidence for an acute pelvic abnormality in this post-hysterectomy patient. 2. If clinical concern regarding an underlying abnormality persists, then CT of the abdomen and pelvis would be recommended for further study. Dictated by: Dictated on workstation # [id number]
== END ==
LOC: RAD 09:45
PROVIDERS: ATTEND Nurse Practitioner Family
DX: R10.2 Pelvic and perineal pain (principal); R68.81 Early satiety; Z90.711 Acquired absence of uterus with remaining cervical stump
CPT/HCPCS: 76700; 76830; 76856

== ENCOUNTER 2022-07-01 16:01 | Emergency (ER) | payer BC, MEDICAID ==
[~2022-07-01] VITALS: Ht 172.7 cm; Wt 67.1 kg
--- NOTE | 2022-07-01 16:51 | ED Upper Extremity ---
General Chief Complaint: Upper Extremity Stated Complaint: RT HAND RING FINGER SWELLING Nursing Triage Note: last thursday right ring finger began to swell, was in the ED on thursday and started on Prednisone 40 mg daily for 5 days (tomorrow is last dose) took 400 mg Ibuprofen at noon, and tylenol 650 mg at 0800. rating pain a 10/10 Source: patient Exam Limitations: no limitations (YA CATALAN) History of Present Illness Date Seen by Provider: Jul 01, 2022 Time Seen by Provider: 16:43 Initial Comments Patient is a 37 y/o F with history of psoriasis who presents to the ER with CC of right ring finger swelling onset 4 days ago. She reports she was seen at [facility] on Thursday after first noticing the swelling and pain. She had an Xray done there that was negative for any bony abnormality and had some blood work done showing "elevated inflammation marker". She was told that her finger was likely swollen due to her psoriasis causing arthritis in the finger. She was given 40 mg oral prednisone. She noticed some improvement in the swelling initially after taking that, but this morning the swelling has significantly worsened according to her. Her pain is a 10/10 and she is unable to move the finger at all. She called her primary care, Dr. Cota, who suggested she come to the ER here for further evaluation. Severity: moderate Pain/Injury Location: right 4th finger Method of Injury: unknown (HOSSEINYA) Allergies and Home Medications Allergies Coded Allergies: No Known Drug Allergies (Unverified , 07/01/22) Patient Home Medication List Home Medication List Reviewed: Yes (YA CATALAN) Adalimumab (Humira) 40 Mg/0.8 Ml Syringekit, 40 MG SQ WEEK, (Reported) Entered as Reported by: TARA WALLER on 04/16/17 09 Amoxicillin/Potassium Clav (Augmentin 875-125 Tablet) 1 Each Tablet, 1 EACH PO BID Prescribed by: TATO COPELAND on 05/02/172225 Clindamycin HCl (Clindamycin HCl) 300 Mg Capsule, 300 MG PO QID Prescribed by: BOB MCKEE on 07/01/221953 Docusate Sodium (Docusate Sodium) 100 Mg Capsule, 100 MG PO BID PRN for CONSTIPATION-1ST LINE Prescribed by: SULTANA RETANA on 04/23/17919 Hydrocodone Bit/Acetaminophen (Lortab 7.5 Mg Tablet) 1 Each Tablet, 1-2 EA PO Q6H PRN for Pain-See Instructions Prescribed by: SULTANA RETANA on 04/23/17919 Hydrocodone/Acetaminophen (Hydrocodone-Acetamin 5-325 mg) 5 Mg-325 Mg Tablet, 1 EACH PO Q4-6 HOURS PRN for PAIN Prescribed by: BOB MCKEE on 07/01/221954 Ibuprofen (Ibuprofen) 600 Mg Tablet, 600 MG PO Q6H PRN for PAIN-MODERATE Prescribed by: SULTANA RETANA on 04/23/17919 L.acidoph & Paracasei,B.lactis (Probiotic) 1 Each Capsule, 1 EACH PO BID Prescribed by: TATO COPELAND on 05/02/172225 Metronidazole (Flagyl) 500 Mg Tablet, 500 MG PO Q6H Prescribed by: TATO COPELAND on 05/02/172225 Ondansetron (Zofran Odt) 4 Mg Tab.rapdis, 4 MG PO Q4H PRN for NAUSEA/VOMITING-1 ST LINE Prescribed by: TATO COPELAND on 05/02/172225 Simethicone (Simethicone) 80 Mg Tab.chew, 40 MG PO TID PRN for INDIGESTION 2ND LINE Prescribed by: SULTANA RETANA on 04/23/17919 Review of Systems Constitutional: No chills, No fever EENTM: no symptoms reported Respiratory: no symptoms reported Cardiovascular: no symptoms reported Gastrointestinal: no symptoms reported Musculoskeletal: other (right 4th proximal finger swelling and pain) Skin: other (psoriasis) (YA CATALAN) Past Xjrhggz-Axkvym-Gbbsbe Hx Patient Social History Tobacco Use?: Yes Tobacco type used: Cigarettes Smoking Status: Current Everyday Smoker Use of E-Cig and/or Vaping dev: No Substance use?: No Alcohol Use?: No Pt feels they are or have been: No (YA CATALAN) Immunizations Up To Date Tetanus Booster (TDap): Unknown PED Vaccines UTD: No Influenza Vaccine Up-to-Date: No; Not Current First/Initial COVID19 Vaccinat: declined (YA CATALAN) Seasonal Allergies Seasonal Allergies: No (YA CATALAN) Past Medical History Surgery/Hospitalization HX: psoriatic arthritis, psoriasis Surgeries: Yes (BMT'S, RIGHT BREAST LUMPECTOMY ( BENIGN) ) Adenoidectomy, Breast, Ear Surgery, Hysterectomy, Tonsillectomy Respiratory: No Cardiac: Yes (HYPERTENSION AFTER DELIVERY ) Hypertension Neurological: No Last Menstrual Period: Apr 17, 2016 Reproductive Disorders: Yes (SEVERE CERVICAL DYSPLASIA) Female Reproductive Disorders: Ovarian Cyst Sexually Transmitted Disease: Yes HIV/AIDS: No Gastrointestinal: No Musculoskeletal: Yes (PSORIATIC ARTHRITIS) Endocrine: No Loss of Vision: Bilateral Hearing Impairment: Denies Cancer: No Psychosocial: No Integumentary: Yes Psoriasis Blood Disorders: No Adverse Reaction/Blood Tranf: No (YA CATALAN) Family Medical History Alcoholism Arthritis Asthma Cardiovascular disease Diabetes mellitus Hypertension Kidney disease Prostate cancer Psychosocial problem Respiratory disorder Visual disorder No Family History of: AIDS Abdominal aortic aneurysm Franco's disease Alzheimer's disease Aphasia Cancer of mouth Cataracts Colon cancer Completed stroke Congenital disease Congenital heart disease Coronary thrombosis Cystic fibrosis Deafness or hearing loss Dementia Drug abuse Dysphasia Fibrocystic disease of breast Gastroenteritis Glaucoma Headache disorder Hypercholesterolemia Infertility Myocardial infarction Neoplasm Not obtainable due to adoption Osteoporosis Parkinson's disease Seizure disorder Severe allergy Thyroid disease Tuberculosis Physical Exam Vital Signs Vital Signs - First Documented 07/01/22 16:15 Temp 37.0 Pulse 78 Resp 18 B/P (MAP) 121/82 (95) Pulse Ox 99 O2 Delivery Room Air (KEYSHAWN CASTILLO MD) Vital Signs Capillary Refill : ([facility]) Height, Weight, BMI Height: 5'9.00" Weight: 145lbs. 0.0oz. 65.470653xp; 22.00 BMI Method:Stated General Appearance: WD/WN, no apparent distress Hand: Right (4th finger tenderness and decreased ROM), swelling (circumferential proximal right 4th finger) (YA CATALAN) Progress/Results/Core Measures Results/Orders Lab Results Laboratory Tests Test 07/01/22 17:30 Range/Units White Blood Count 9.7 4.3-11.0 10^3/uL Red Blood Count 4.19 3.80-5.11 10^6/uL Hemoglobin 12.8 11.5-16.0 g/dL Hematocrit 38 35-52 % Mean Corpuscular Volume 91 80-99 fL Mean Corpuscular Hemoglobin 31 25-34 pg Mean Corpuscular Hemoglobin Concent 33 32-36 g/dL Red Cell Distribution Width 12.6 10.0-14.5 % Platelet Count 276 130-400 10^3/uL Mean Platelet Volume 10.8 9.0-12.2 fL Immature Granulocyte % (Auto) 0 % Neutrophils (%) (Auto) 52 42-75 % Lymphocytes (%) (Auto) 37 12-44 % Monocytes (%) (Auto) 8 0-12 % Eosinophils (%) (Auto) 1 0-10 % Basophils (%) (Auto) 1 0-10 % Neutrophils # (Auto) 5.1 1.8-7.8 10^3/uL Lymphocytes # (Auto) 3.6 1.0-4.0 10^3/uL Monocytes # (Auto) 0.8 0.0-1.0 10^3/uL Eosinophils # (Auto) 0.1 0.0-0.3 10^3/uL Basophils # (Auto) 0.1 0.0-0.1 10^3/uL Immature Granulocyte # (Auto) 0.0 0.0-0.1 10^3/uL (KEYSHAWN CASTILLO MD) My Orders Orders - KEYSHAWN CASTILLO MD Ed Iv/Invasive Line Start (07/01/22 16:53) Basic Metabolic Panel (07/01/22 16:53) Cbc With Automated Diff (07/01/22 16:53) Blood Culture (07/01/22 16:53) Erythrocyte Sedimentation Rate (07/01/22 16:53) Hs C Reactive Protein (07/01/22 16:53) Lactic Acid Analyzer (07/01/22 16:53) Fentanyl Inj (Sublimaze Injection) (07/01/22 17:00) Ondansetron Injection (Zofran Injectio (07/01/22 17:00) (KEYSHAWN CASTILLO MD) Medications Given in ED Current Medications Medications Dose Ordered Sig/Lois Route Start Time Stop Time Status Last Admin Dose Admin Fentanyl Citrate 50 mcg ONCE ONCE IVP 07/01/22 17:00 07/01/22 17:01 DC 07/01/22 17:41 50 MCG Ondansetron HCl 4 mg ONCE ONCE IVP 07/01/22 17:00 07/01/22 17:01 DC 07/01/22 17:40 4 MG (KEYSHAWN CASTILLO MD) Vital Signs/I&O 07/01/22 16:15 Temp 37.0 Pulse 78 Resp 18 B/P (MAP) 121/82 (95) Pulse Ox 99 O2 Delivery Room Air (KEYSHAWN CASTILLO MD) Blood Pressure Mean: 95 Progress Progress Note : Time: 17:46 Progress Note Call made to [facility] [place], No bed availability and no hand surgeon communications scientist today (KEYSHAWN CASTILLO MD) Progress Note : Progress Note 1800--ASSUMED CARE FROM DR. CASTILLO, LAB PENDING. ADDITIONAL PAIN MEDICATION ORDERED NO DETERIORATION IN PT'S CONDITION DURING ER STAY DISCUSSED TEST RESULTS, PLAN OF CARE AND ARRANGEMENTS FOR FOLLOW UP TOMORROW MORNING WITH HAND SURGEON. WILL SEND HER HOME WITH ORAL CLINDAMYCIN FOR TONIGHT AND IN AM, WELL PAIN MEDICATION. ADVISED HER TO BRING A CONCRETE BLOCK [place], IN CASE SHE WOULD NEED ANY KIND OF SEDATION IF A PROCEDURE IS DONE TOMORROW. SHE STATES SHE WILL FOLLOW UP PLANNED AND IS AWARE OF THE DRIVE TIME FROM HERE TO [place]. (BOB MCKEE DO) Diagnostic Imaging Comments XRAYS OF FINGER--PER RADIOLOGIST REPORT AT 1840 FINDINGS: Three views of the right fourth finger were obtained. Alignment is normal. The phalanges are intact. No fracture or bony destructive changes are seen. Soft tissues are unremarkable. IMPRESSION: No acute abnormality is detected. Reviewed: Reviewed by Me (BOB MCKEE DO) Departure Communication (Admissions) 1918--CALLED [facility]. PAGING HAND SURGEON 1934--SPOKE WITH DR. SRINI LANDRUM, HAND SURGEON. HE ADVISES TO SEND PT HOME WITH RX FOR CLINDAMYCIN, AND HE WILL SEE PT FIRST THING IN THE MORNING IN HIS OFFICE--SHE SHOULD ARRIVE AT 0830 AM. AD[address]ESS [address] [place] [address]. [phone] (BOB MCKEE DO) Impression Primary Impression: Flexor tenosynovitis of finger Disposition: 01 HOME, SELF-CARE Condition: Stable Departure-Patient Inst. Decision time for Depature: 19:35 (BOB MCKEE DO) Referrals: MARIANNA COTA MD (PCP/Family) Primary Care Physician Patient Instructions: Tenosynovitis (DC) Add. Discharge Instructions: FOLLOW UP WITH DR. SRINI LANDRUM, HAND SURGEON, WITH [facility] IN [place], [place] YOU NEED TO BE AT HIS OFFICE TOMORROW MORNING AT 08:30 [facility] [place], [place] 3RD FLOOR [phone] All discharge instructions reviewed with patient and/or family. Voiced understanding. Scripts Hydrocodone/Acetaminophen (Hydrocodone-Acetamin 5-325 mg) 5 Mg-325 Mg Tablet 1 EACH PO Q4-6 HOURS PRN for PAIN, #20 TAB Prov: BOB MCKEE DO 07/01/22 Clindamycin HCl (Clindamycin HCl) 300 Mg Capsule 300 MG PO QID for 10 Days, #40 CAP Prov: BOB MCKEE DO 07/01/22 YA CATALAN Jul 01, 2022 16:51 KEYSHAWN CASTILLO MD Jul 01, 2022 17:48 BOB MCKEE DO Jul 01, 2022 18:41
[2022-07-01] MEDS ORDERED: fentaNYL INJ 100 MCG/2 ML AMP IVP ONE ×2 (17:00→19:30)
[2022-07-01] MEDS ORDERED: ONDANSETRON 4 MG/2 ML (SDV) Z0FRAN IVP ONE (17:00)
[2022-07-01 17:40] LABS: BASOPHILS # (AUTO) 0.1 10^3/uL (0.0-0.1); BASOPHILS % (AUTO) 1 % (0-10); EOSINOPHILS # (AUTO) 0.1 10^3/uL (0.0-0.3); EOSINOPHILS % (AUTO) 1 % (0-10); HEMATOCRIT 38 % (35-52); HEMOGLOBIN 12.8 g/dL (11.5-16.0); LYMPHOCYTES # (AUTO) 3.6 10^3/uL (1.0-4.0); LYMPHOCYTES % (AUTO) 37 % (12-44); MEAN CORPUSCULAR HEMOGLOBIN 31 pg (25-34); MEAN CORPUSCULAR HGB CONC 33 g/dL (32-36); MEAN CORPUSCULAR VOLUME 91 fL (80-99); MEAN PLATELET VOLUME 10.8 fL (9.0-12.2); MONOCYTES # (AUTO) 0.8 10^3/uL (0.0-1.0); MONOCYTES % (AUTO) 8 % (0-12); NEUTROPHILS # (AUTO) 5.1 10^3/uL (1.8-7.8); NEUTROPHILS % (AUTO) 52 % (42-75); PLATELET COUNT 276 10^3/uL (130-400); WHITE BLOOD COUNT 9.7 10^3/uL (4.3-11.0)
[2022-07-01 17:54] LABS: POTASSIUM 3.1 MMOL/L (3.6-5.0)
[2022-07-01 17:56] LABS: CALCIUM 9.1 MG/DL (8.5-10.1)
[2022-07-01 18:00] LABS: CREATININE SERUM 0.65 MG/DL (0.60-1.30)
[2022-07-01] MEDS ORDERED: cefTRIAXone 1 GM PRE-MIX 50 ML IV ONE (18:00)
[2022-07-01] MEDS ORDERED: VANCOMYCIN INJECTION 1,000 MG in NS (IVPB) 250 ML IV ONE (18:00)
[2022-07-01 18:03] LABS: ERYTHROCYTE SEDIMENTATION RATE 10 MM/HR (0-20)
[2022-07-01 18:29] LABS: ALBUMIN 3.7 GM/DL (3.2-4.5)
[2022-07-01 18:32] LABS: TOTAL PROTEIN 6.2 GM/DL (6.4-8.2)
[2022-07-01 18:34] LABS: BILIRUBIN,TOTAL 0.2 MG/DL (0.1-1.0)
--- NOTE | 2022-07-01 18:36 | Diagnostic Imaging Report ---
INDICATION: Swelling in the right fourth finger and severe pain. TIME OF EXAM: 6:17 p.m. FINDINGS: Three views of the right fourth finger were obtained. Alignment is normal. The phalanges are intact. No fracture or bony destructive changes are seen. Soft tissues are unremarkable. IMPRESSION: No acute abnormality is detected. Dictated by: Dictated on workstation # [id number]
[2022-07-01 18:37] LABS: BILIRUBIN,DIRECT 0.1 MG/DL (0.0-0.3); BILIRUBIN,INDIRECT 0.1 MG/DL
[2022-07-01] MEDS ORDERED: CLIN-144 PO (19:54)
[2022-07-01] MEDS ORDERED: ACHD5005 PO (19:54)
[2022-07-01] MEDS ORDERED: RX-CLINDAMYCIN 150 MG (CLEOCIN) CAP PPK#4 PO STA (19:55)
[2022-07-01 20:10] VITALS: BP 113/76
== END 2022-07-01 20:19 | disposition home or self-care (01) ==
LOC: EDUNIT# 16:01 → ER 16:03
DX: M65.841 Other synovitis and tenosynovitis, right hand (principal); F17.210 Nicotine dependence, cigarettes, uncomplicated; Z28.310 Unvaccinated for COVID-19; Z87.39 Personal history of other diseases of the musculoskeletal system and connective tissue
CPT/HCPCS: 36415; 73140; 80048; 80076; 83605; 84145; 85025; 85652; 86141; 87040